=== PATIENT | female | born 1960 | race Caucasian/White ===

== ENCOUNTER 2018-08-26 10:53 | Emergency (ER) | payer BC, SELFPAY ==
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
[2018-08-26 11:08] VITALS: BP 164/108; PULSE 108; RESP 18; TEMP 36.7; O2SAT 97
[2018-08-26] MEDS: Acetaminophen 500 MG TAB 1000 MG PO (11:17)
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
== END 2018-08-26 13:20 | disposition home or self-care (01) ==
LOC: ER 12:34
PROVIDERS: Emergency Provider Student in an Organized Health Care Education/Training Program; PCP Registered Nurse
DX: S82.141A Displaced bicondylar fracture of right tibia, initial encounter for closed fracture (principal); M25.061 Hemarthrosis, right knee; Y04.2XXA Assault by strike against or bumped into by another person, initial encounter; Y07.01 Husband, perpetrator of maltreatment and neglect; I10 Essential (primary) hypertension
CPT/HCPCS: 27530; 73562; 73502; 73700; L1830

== ENCOUNTER 2018-10-03 10:01 | Outpatient (CLI) | payer BC, SELFPAY ==
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
== END 2018-10-03 10:21 ==
PROVIDERS: PCP Registered Nurse; Visit Provider Orthopaedic Surgery
DX: S82.141D Displaced bicondylar fracture of right tibia, subsequent encounter for closed fracture with routine healing (principal)
CPT/HCPCS: 73564